=== PATIENT | female | born 1970 | race American Indian/Alaskan Native ===

== ENCOUNTER 2020-05-21 10:57 | Outpatient (CLI) | payer OTHER ==
--- NOTE | 2020-05-21 12:12 | XRay Report ---
BILATERAL KNEES 4 VIEWS INDICATION / CLINICAL INFORMATION: LEFT AND RIGHT KNEE PAIN. COMPARISON: None available. FINDINGS: Moderate degenerative change in both knees medially, with articular space narrowing, hypertrophic spu rring and subchondral sclerosis. Changes are very slightly more pronounced in the right knee. On late ral views, the right suprapatellar bursa is slightly distended, consistent with right knee joint effu uche. No evidence of significant effusion on the left. No fracture or other acute skeletal abnormality. IMPRESSION: Degenerative change in both knees, primarily medially, with right joint effusion. Signer Name: Ronaldo Quinn MD Signed: 05/21/2020 12:08 PM Workstation Name: [id number]
== END 2020-05-21 10:58 | disposition home or self-care (01) ==
LOC: XRAY 10:57
PROVIDERS: ATTEND Internal Medicine
DX: M17.0 Bilateral primary osteoarthritis of knee (principal); M25.461 Effusion, right knee; M76.9 Unspecified enthesopathy, lower limb, excluding foot